=== PATIENT | male | born 1985 ===

== ENCOUNTER 2022-08-27 18:15 | Outpatient (CLI) | payer OTHER ==
--- NOTE | 2022-08-27 15:04 | XRAY Report ---
PROCEDURE: Shoulder 3 View RT INDICATIONS: RECURRENT DISLOCATION OF RIGHT SHOULDER TECHNIQUE: 3 views of the shoulder were acquired. COMPARISON: None. FINDINGS: Bones: Question subtle impaction of the humeral head. No suspicious bony lesions. Visualized ribs ap pear intact. Soft tissues: No suspicious soft tissue calcifications. IMPRESSION: Question subtle impaction of the humeral head (Hill-Sachs deformity). No other evidence acute bony abnormality of the right shoulder. If clinical suspicion and/or symptoms persist, further assessment with repeat plain films or advanced imaging (e.g., CT, MRI, or bone scan) may be helpful for further assessment. Reviewed by: Jaspal Magaña MD on 08/27/2022 3:02 PM PST Approved by: Jaspal Magaña MD on 08/27/2022 3:02 PM PST Station ID: [id number]
== END 2022-08-27 18:16 | disposition home or self-care (01) ==
LOC: DI.S 18:15
PROVIDERS: ATTEND Physician Assistant
DX: M24.411 Recurrent dislocation, right shoulder (principal)